=== PATIENT | female | born 1980 | race Caucasian/White ===

== ENCOUNTER 2021-12-27 05:25 | Day surgery (SDC) | payer OTHER ==
[~2021-12-27 05:25] MED LIST: CLONAZEPAM1 MG PO; ELAVIL PO; LIPITOR20 MG PO; METFORMIN HCL500 M2; [UNRECOGNIZED DRUG - OTHER]
== END 2021-12-27 14:10 | disposition home or self-care (01) ==
LOC: CIR.AMB 05:25
PROVIDERS: ATTEND Obstetrics & Gynecology
DX: N70.91 Salpingitis, unspecified (principal); Z64.1 Problems related to multiparity; Z20.822 Contact with and (suspected) exposure to COVID-19; E11.9 Type 2 diabetes mellitus without complications; Z87.442 Personal history of urinary calculi; G43.909 Migraine, unspecified, not intractable, without status migrainosus; K21.9 Gastro-esophageal reflux disease without esophagitis; Z79.84 Long term (current) use of oral hypoglycemic drugs